=== PATIENT | female | born 1980 | race Caucasian/White ===

== ENCOUNTER 2016-09-25 15:43 | Emergency (ER) | payer OTHER ==
[~2016-09-25] VITALS: Wt 83.5 kg
[~2016-09-25 15:43] MED LIST: ADV25050 INH; ALBU18HF INHALATION; ALBU2.5V3 NEB; ALBU8.5H3 INH; ALBU8.5H5 IH; AZIT250T94 PO; BUDE6HFA INHALATION; FAMO-18 PO; HYDR-3498 PO; HYDR-906 PO; LEVO500T72 PO; MONT10TA21 PO; NORG1TAB30 PO; PRED20TA PO; RTPRO NEB; SYMB80120 INHALATION
[2016-09-25] MEDS ORDERED: ACETAMINOPHEN 325 MG TAB PO STA (17:26)
[2016-09-25] MEDS ORDERED: METOCLOPRAMIDE 10 MG INJ IV ONE (17:30)
[2016-09-25 17:52] LABS: BASOPHIL # 0.1 10^3/ul (0.0-0.1); BASOPHILS % 0.6 % (0.0-2.0); EOSINOPHILS # 0.4 10^3/ul (0.0-0.5); EOSINOPHILS % 3.3 % (0.0-7.0); HEMOGLOBIN 12.7 g/dl (12.0-16.0); LYMPHOCYTES % 19.1 % (15.0-51.0); MEAN CORPUSCULAR HEMOGLOBIN 30.6 pg (29.0-33.0); MEAN CORPUSCULAR HGB CONC 34.4 g/dl (32.0-37.0); MEAN CORPUSCULAR VOLUME 88.8 fl (82.0-101.0); MEAN PLATELET VOLUME 8.9 fl (7.4-10.4); MONOCYTE # 0.5 10^3/ul (0.3-0.9); MONOCYTES % 4.4 % (0.0-11.0); NEUTROPHIL # 7.8 10^3/ul (1.6-7.5); NEUTROPHILS % 72.6 % (39.0-77.0); PLATELET COUNT 282 10^3/UL (140-440); RED BLOOD COUNT 4.17 10^6/ul (4.20-5.40); RED CELL DISTRIBUTION WIDTH 14.9 % (11.5-14.5); UNCORRECTED WBC 10.7 10^3/ul (4.8-10.8); WHITE BLOOD COUNT 10.7 10^3/ul (4.8-10.8)
[2016-09-25 17:55] LABS: CONDITION 1; LH ANALYZER COMMENTS 1
[2016-09-25 17:57] LABS: ADD UMIC YES; URINE BILIRUBIN (Dip) NEGATIVE (NEGATIVE); URINE BLOOD (Dip) NEGATIVE (NEGATIVE); URINE COLOR YELLOW (YELLOW); URINE GLUCOSE (Dip) NEGATIVE (NEGATIVE); URINE KETONES (Dip) TRACE (NEGATIVE); URINE LEUKOCYTE ESTERASE (Dip) NEGATIVE (NEGATIVE); URINE NITRITE (Dip) NEGATIVE (NEGATIVE); URINE TOTAL PROTEIN (Dip) NEGATIVE (NEGATIVE); URINE UROBILINOGEN (Dip) 0.2 E.U./dL (0.1-1.0)
[2016-09-25 18:04] LABS: ALBUMIN 3.5 g/dl (3.3-4.9)
[2016-09-25 18:05] LABS: POTASSIUM 3.7 mmol/L (3.5-5.1)
[2016-09-25 18:06] LABS: BACTERIA,URINE FEW; MUCUS,URINE MODERATE; SQUAMOUS EPITHELIAL CELL,UR MANY
[2016-09-25 18:07] LABS: ALBUMIN/GLOBULIN RATIO 1.09; BILIRUBIN,INDIRECT 0.2 mg/dl (0-1.1); BILIRUBIN,TOTAL 0.2 mg/dl (0.2-1.3); CREATININE 0.66 mg/dl (0.44-1.00); TOTAL PROTEIN 6.7 g/dl (6.1-8.1); URINE RBCS NONE SEEN /HPF (0)
[2016-09-25 18:08] LABS: CALCIUM 8.7 mg/dl (8.4-10.2)
--- NOTE | 2016-09-25 18:28 | RADRPT ---
PROCEDURE: US OB. CLINICAL INDICATION: Vaginal bleeding TECHNIQUE: Transabdominal views of the pelvis are available for review. COMPARISON: 08/23/2016 FINDINGS: There is a single intrauterine gestation with the crown-rump length measuring 2.0 cm, corresponding to a gestational age of 8 weeks and 4 days. The heart rate is noted at 138 bpm. The ovaries are normal in size and echogenicity. Normal Doppler flow is identified in both ovaries. The right ovary measures 3.7 x 1.9 x 3.4 cm. The left ovary measures 3.3 x 1.2 x 3.0 cm. There is no free fluid. RPTAT: AA IMPRESSION: Single live intrauterine with an estimated gestational age of 8 weeks and 4 days, based on ultrasound measurements. .Esa Cavanaugh MD, Date Time Electronically viewed and signed by .Esa Cavanaugh MD, on 09/25/2016 18:28 .S/
[2016-09-25] MEDS ORDERED: TYL500 PO (18:49)
[2016-09-25] MEDS ORDERED: PRENAT PO (18:49)
[2016-09-25] MEDS ORDERED: METO10TA96 PO (18:49)
--- NOTE | 2016-09-25 18:52 | ERD ---
ER Documentation Chief Complaint Date/Time DATE: 09/25/16 TIME: 18:51 Chief Complaint ABD PAIN, 12 WKS PG, NO VB, ALSO NAUSEA HPI This 36-year-old female presents with some generalized intermittent abdominal pain for last 2 days. She just found out 3 days ago she was . Her last menstrual period was early June. She denies any bleeding, fevers. She has nausea but no vomiting. She denies any specific right lower quadrant pain or right upper quadrant pain. She is a G2 para 1. She has not had her first OB visit yet. ROS All systems reviewed and are negative except as per history of present illness. Medications Home Meds Active Scripts Multivit/Min/Fol Ac/Iron/Pren* ( S*) 1 Tab Tab, 1 TAB PO DAILY, #100 TAB Prov:JI LANE MD 09/25/16 Acetaminophen* (Tylenol*) 500 Mg Tab, 500 MG PO Q4H Y for MILD PAIN LEVEL 1-3, # 14 TAB Prov:JI LANE MD 09/25/16 Metoclopramide Hcl* (Metoclopramide Hcl*) 10 Mg Tablet, 10 MG PO Q6H Y for NAUSEA AND OR VOMITING, #14 TAB Prov:JI LANE MD 09/25/16 Budesonide-Formoterol Fumarate* (Symbicort*) 160-4.5 Hfa.aer.ad, 2 PUFF INHALATION BID, #1 EACH Prov:GIUSEPPE MONROY DO 08/23/16 Albuterol Sulfate* (Ventolin HFA*) 18 Gm Hfa.aer.ad, 2 PUFF INHALATION Q4H, #1 INHALER Prov:GIUSEPPE MONROY DO 08/23/16 Albuterol Sulfate* (Albuterol Sulfate* Neb) 0.083%-3 Ml Neb, 2.5 MG NEB Q3H Y for WHEEZING AND SOB, #30 VIAL Prov:GIUSEPPE MONROY DO 08/23/16 Famotidine* (Pepcid*) 20 Mg Tablet, 20 MG PO BID, #30 TAB Prov:NAN RINCON PA-C 06/26/16 Hydrocodone/Acetaminophen ([place] 5-325 Tablet) 1 Each Tablet, 1 TAB PO Q6H Y for PAIN, #7 TAB Prov:NAN RINCON PA-C 06/26/16 Albuterol Sulfate* (Albuterol Sulfate* Neb) 0.083%-3 Ml Neb, 2.5 MG NEB Q3H Y for WHEEZING AND SOB, #30 VIAL Prov:LUKE NAVAS PA-C 01/21/16 Budesonide-Formoterol Fumarate* (Symbicort*) 80-4.5 Inha, 2 PUFFS INHALATION BID , #1 EACH Prov:LUKE NAVAS PA-C 01/21/16 Montelukast Sodium* (Singulair*) 10 Mg Tablet, 10 MG PO QHS, #30 TAB Prov:LUKE NAVAS PA-C 01/21/16 Albuterol Sulfate* (Ventolin HFA*) 18 Gm Hfa.aer.ad, 2 PUFF INHALATION Q4H, #1 INHALER Prov:LUKE NAVAS PA-C 01/21/16 Albuterol Sulfate* (Proair HFA*) 8.5 Gm Hfa.aer.ad, 2 PUFF INH Q4, #1 INHALER Prov:MOHINDER DYE PA-C 01/04/16 Albuterol Sulfate* (Proventil* Neb) 0.083% Neb, 2.5 MG NEB Q4 Y for SHORTNESS OF BREATH, #30 EA Prov:MOHINDER DYE PA-C 01/04/16 Prednisone* (Prednisone*) 20 Mg Tab, 40 MG PO DAILY for 4 Days, TAB Prov:MOHINDER YDE PA-C 01/04/16 Albuterol Sulfate* (Ventolin HFA*) 18 Gm Hfa.aer.ad, 2 PUFF INHALATION Q4H, #[address]HALER Prov:JI LANE MD 12/17/15 Prednisone* (Prednisone*) 20 Mg Tab, 60 MG PO DAILY for 10 Days, TAB 60 mg by mouth each day for 4 days. Then 40 mg by mouth each day for 3 days. The 20 mg by mouth each day for 3 days. Prov:JI LANE MD 12/17/15 Albuterol Sulfate* (Proventil* Neb) 0.083% Neb, 2.5 MG NEB Q4 Y for SHORTNESS OF BREATH, #30 EA Prov:JI LANE MD 12/17/15 Albuterol Sulfate* (Ventolin HFA*) 18 Gm Hfa.aer.ad, 2 PUFF INHALATION Q4H, #1 INHALER Prov:GAY RENNER. 11/11/15 Prednisone (Prednisone) 20 Mg Tablet, 20 MG PO BID, #10 TAB Prov:GAY RENNER S. 11/11/15 Azithromycin* (Zithromax*) 250 Mg Tablet, 250 MG PO .TahminaPACK DIRECTED, #6 TAB TAKE 500 MG (2 TABS) THE FIRST DAY THEN 250 MG (1 TAB) DAYS 2-5 Prov:GAY RENNER. 11/11/15 Prednisone* (Prednisone*) 20 Mg Tab, 60 MG PO DAILY for 4 Days, TAB Prov:EMERSON TOLBERT MD 10/17/15 Albuterol Sulfate* (Proair HFA*) 8.5 Gm Hfa.aer.ad, 2 PUFF INH Q4H Y for WHEEZING AND SOB, #1 INHALER Prov:EMERSON TOLBERT MD 10/17/15 Hydrocodone Bit/Acetaminophen (Anexsia 5-325 Mg Tablet) 1 Tab Tab, 2 TAB PO Q6 Y for mod pain, #30 Prov:JENNIFER REID NP 10/23/14 Levofloxacin* (Levaquin*) 500 Mg Tablet, 500 MG PO DAILY for 7 Days, TAB Prov:JENNIFER REID SLOT SERVICE SPECIALIST 10/23/14 Salmeterol Xinaf/Fluticasone* (Advair*) 1 Inh Inha, 1 INH INH BID for 30 Days Prov:JENNIFER REID NP 10/23/14 Reported Medications Albuterol Sulfate* (Albuterol Sulfate* HFA) 8.5 Gm Hfa.aer.ad, 2 PUFF IH Q6 Y for SHORTNESS OF BREATH, EA 10/18/14 Norgestimate-Ethinyl Estradiol (Ortho Tri-Cyclen) 0.035-0.18 Mg Tablet, 1 TAB PO DAILY, TAB 07/11/14 Allergies Allergies: Coded Allergies: kiwi (Verified Allergy, Intermediate, SWELLING, RASH, 09/25/16) KIWI FRUIT omeprazole (Verified Adverse Reaction, Intermediate, EMISIS, 09/25/16) PMhx/Soc History of Surgery: Yes (C/SECTION X1) Anesthesia Reaction: No Hx Neurological Disorder: No Hx Respiratory Disorders: Yes (ASTHMA) Hx Cardiac Disorders: No Hx Psychiatric Problems: No 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 Neck: Full range of motion..~ No meningismus. Resp: Clear to auscultation bilaterally Cardio: Regular rate and rhythm, no murmurs Abd: Soft, non tender, non distended. Normal bowel sounds Skin: No petechiae or rashes Back: No midline or flank tenderness Ext: No cyanosis, or edema Neur: Awake and alert Psych: Normal Mood and Affect Result Diagram: 09/25/165 09/25/16 1745 Results 24 hrs Laboratory Tests Test 09/25/16 17:45 Alanine Aminotransferase (ALT/SGPT) 20IU/L Albumin 3.5g/dl Albumin/Globulin Ratio 1.09 Alkaline Phosphatase 55IU/L Anion Gap 16 Aspartate Amino Transf (AST/SGOT) 13IU/L Basophils # 0.110^3/ul Basophils % 0.6% Blood Morphology Comment Blood Urea Nitrogen 6mg/dl Calcium Level 8.7mg/dl Carbon Dioxide Level 25mmol/L Chloride Level 104mmol/L Creatinine 0.66mg/dl Direct Bilirubin 0.00mg/dl Eosinophils # 0.410^3/ul Eosinophils % 3.3% Globulin 3.20g/dl Glucose Level 84mg/dl Hematocrit 37.0% Hemoglobin 12.7g/dl Indirect Bilirubin 0.2mg/dl Lymphocytes # 2.010^3/ul Lymphocytes % 19.1% Mean Corpuscular Hemoglobin 30.6pg Mean Corpuscular Hemoglobin Concent 34.4g/dl Mean Corpuscular Volume 88.8fl Mean Platelet Volume 8.9fl Monocytes # 0.510^3/ul Monocytes % 4.4% Neutrophils # 7.810^3/ul Neutrophils % 72.6% Nucleated Red Blood Cells # 0.010^3/ul Nucleated Red Blood Cells % 0.0/100WBC Platelet Count 04019^3/UL Potassium Level 3.7mmol/L Red Blood Count 4.1710^6/ul Red Cell Distribution Width 14.9% Sodium Level 141mmol/L Total Bilirubin 0.2mg/dl Total Protein 6.7g/dl Urine Bacteria FEW Urine Bilirubin NEGATIVE Urine Clarity CLOUDY Urine Color YELLOW Urine Glucose NEGATIVE% Urine Hemoglobin NEGATIVE Urine Ketones TRACE Urine Leukocyte Esterase NEGATIVE Urine Microscopic RBC NONE SEEN/HPF Urine Microscopic WBC 0-2/HPF Urine Mucus MODERATE Urine Nitrite NEGATIVE Urine Specific [place] 1.025 Urine Squamous Epithelial Cells MANY Urine Total Protein NEGATIVE Urine Urobilinogen 0.2 E.U./dL Urine pH 6.0 White Blood Count 10.710^3/ul Current Medications Medications (Trade) Dose Ordered Sig/Cathie Route PRN Reason Start Time Stop Time Status Last Admin Dose Admin Acetaminophen (Tylenol Tab) 650 mg ONCE STAT PO 09/25/16 17:26 09/25/16 17:28 DC 09/25/16 17:41 Metoclopramide HCl (Reglan) 10 mg ONCE ONCE IV 09/25/16 17:30 09/25/16 17:31 DC 09/25/16 17:41 Procedures/MDM Pelvic ultrasound shows intrauterine of 8 weeks 4 days without evidence of adnexal or acute complications. CBC and CMP and urine are normal. Patient is Rh+. Patient was given Reglan 10 mg IV Pepcid 20 mg IV. Patient had improvement in a benign abdomen on serial exam. Patient presents with intermittent mild abdominal pain and nausea of uncertain etiology of early . There is no evidence of ectopic . No signs or symptoms to suggest appendicitis, acute abdomen, UTI, sepsis. She will be discharged home with a short course of Reglan, Tylenol and instructions to take vitamins and follow-up with OB as scheduled. She should otherwise return for fevers, bleeding, new or worsening symptoms. Departure Diagnosis: Primary Impression: Abdominal pain Abdominal location: unspecified location Qualified Code: R10.9 - Abdominal pain, unspecified location Condition: Stable Patient Instructions: Abdominal Pain, Early Referrals: [facility] [place] [id number] [address] OFFICE FAX , [place] [address] [place] [address] [address]. DEE, [place] [address] [place] [address] [address] [facility]UNG, [facility] [address] [facility], [address] [place] [address] [address] MAIER, [facility] [address] [facility], [place] [address] [facility] [address] [place] [address] [facility] [address] - [address] DICKENS, SAMUEL [address] [address] DR GARC[place], [place] [address] [facility]. [address], [place] [address] DR ABRAHAM, [facility] [address] [place], [place] [id number] Additional Instructions: All exams normal today. Ultrasound shows intrauterine 8 week 4 day . Recheck with OB as scheduled or return for bleeding, fevers, new or worsening symptoms. JI LANE MD Sep 25, 2016 18:52
[2016-09-25 19:03] VITALS: BP 115/69; PULSE 80; RESP 18; TEMP 98.2
== END 2016-09-25 19:03 | disposition home or self-care (01) ==
LOC: FTE 15:43
DX: O26.891 Other specified pregnancy related conditions, first trimester (principal); R10.9 Unspecified abdominal pain; J45.909 Unspecified asthma, uncomplicated; Z3A.08 8 weeks gestation of pregnancy
CPT/HCPCS: 36415; 76801; 80053; 81001; 84702; 85025; 86900; 86901; 96374; J2765; Z7502; Z7610; 81003

== ENCOUNTER 2016-10-18 14:23 | Emergency (ER) | END 2016-10-18 19:41 | disposition home or self-care (01) | DX: O99.89 Other specified diseases and conditions complicating pregnancy, childbirth and the puerperium (principal); M54.2 Cervicalgia; J45.909 Unspecified asthma, uncomplicated; O99.511 Diseases of the respiratory system complicating pregnancy, first trimester; Z3A.12 12 weeks gestation of pregnancy | CPT/HCPCS: J2270; J2765; Z7610 ==

== ENCOUNTER 2017-04-20 16:03 | Outpatient (CLI) | payer OTHER ==
[~2017-04-20] VITALS: Ht 162.6 cm; Wt 92.4 kg
[~2017-04-20 16:03] MED LIST changes: +ACET1TAB40 PO; -FAMO-18 PO; +FAMO-96 PO; +METO10TA96 PO; +PRENAT PO; +TYL500 PO
[2017-04-20 16:48] VITALS: Ht 162.6 cm; Wt 92.4 kg
--- NOTE | 2017-04-20 17:31 | RADRPT ---
PROCEDURE: US OB biophysical profile. CLINICAL INDICATION: evaluation, decreased movement TECHNIQUE: Multiple sonographic images of the pelvis were obtained. The images were reviewed on a PACS workstation. COMPARISON: No prior studies are available for comparison. FINDINGS: There is a single viable intrauterine gestation. Cardiac activity is present with 131 beats per min vivian. There is a vertex presentation. The placenta is fundal. There is no evidence of placental abruption. There is a normal amount of amniotic fluid with an YASMEEN = 11.7 cm. Biophysical profile: movement 2/2 tone 2/2. breathing 2/2 YASMEEN 2/2 Total 04/25 RPTAT: AA . IMPRESSION: Normal biophysical profile. Physician Long Date Time Electronically viewed and signed by Physician Long on 04/20/2017 17:30 /
--- NOTE | 2017-04-20 18:09 | TRIAGE ---
OB Triage Datetime Report Generated by CPN: 04/20/2017 18:08 Datetime: 04/20/2017 17:45 Labor Evaluation Frequency: OCC Monitor Mode: External Quality: Moderate Pattern: Normal: <= 5 Contractions in 10 Minutes Resting Tone [place]: Relaxed Heart Rate FHR Baseline Rate: 140 Monitor Mode: External US FHR Baseline Changes: No Baseline Change Variability: Moderate 6-25 bpm Accelerations: 15X15 Decelerations: None Category: Category I Pain Assessment Pain Presence: None/Denies Pain Assessment Comments: Pt denies feeling any pain or pressure with contractions Datetime: 04/20/2017 17:12 Time of Arrival: 04/20/2017 16:00 EGA: 38.3 Arrived By: Ambulatory Arrived From: Other Unit in Hospital Chief Complaint: arrhythmia in NST clinic Movement: Present Contractions: Denies/Absent Rupture of Membranes: Denies Vaginal Bleeding: Normal Show Vaginal Discharge: Denies Recent Sexual Intercouse: Denies Abdominal Trauma: Not Applicable Patient Complaints: None Time Provider Notified: 04/20/2017 17:45 [facility] Initial Plan: NST, BPP/YASMEEN Datetime: 04/20/2017 17:10 Assessment Type: Triage Maternal Assessment Level of Consciousness: Fully Conscious DTR's/Clonus: DTRs 2+; No Clonus Headache: Denies Blurred Vision: No Respiratory Effort: Unlabored; Regular Rhythm; Equal Expansion Breath Sounds, Left: Clear and Equal Breath Sounds, Right: Clear and Equal Nausea/Vomiting: Denies RUQ Epigastric Pain: Denies Lower Extremities Edema: Bilateral Lower Extremities Degree: 1+ Upper Extremities Edema: None Degree: None Facial Edema: None Fall Risk Assessment History of Falling: (0) No Secondary Diagnosis: (0) No Ambulatory Aid: (0) Bedrest/Nurse Assist IV Therapy: (0) No Gait: (0) Normal/Bedrest/Immobile Mental Status: (0) Oriented to Own Ability Fall Score: 0 Fall Risk Score Definition: No Risk: No action required Datetime: 04/20/2017 16:31 Stage of : OB Triage
--- NOTE | 2017-04-20 18:56 | PN ---
Triage Information Date/Time Reason for visit: Abnormal NST Weeks of Gestation 38 weeks and 3 days /Para 2 para 1 Diabetes: none (None) Hypertention: none Additional information Allergic to kiwi and omeprazole currently on albuterol inhaler as well as Symbicort She has asthma Objective Blood pressure 110/64, pulse rate 88 respiration 18 temperature 98.6,,. Heart Rate: 140's ( heart tracing is normal with good variability and acceleration no T-cell) Contractions: 6-10 Minutes Apart (No active contractions) Exam Pelvic exam was not performed due to the fact that she does not have any contractions Results/Medications Imaging Results On ultrasound study the report is a single viable intrauterine gestation with cardiac activity 131 bpm in vertex presentation placenta was fundal no evidence of previa or abruption. 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
== END 2017-04-20 18:00 | disposition home or self-care (01) ==
LOC: OBT 16:03 → L-D 16:06 → OBT 18:00
PROVIDERS: ATTEND Obstetrics & Gynecology
DX: O76 Abnormality in fetal heart rate and rhythm complicating labor and delivery (principal); Z3A.38 38 weeks gestation of pregnancy
CPT/HCPCS: 76818; Z7500; G0463

== ENCOUNTER 2017-04-25 10:53 | Inpatient (IN) | payer OTHER ==
[~2017-04-25] VITALS: Ht 160 cm; Wt 91.8 kg
[~2017-04-25 10:53] MED LIST changes: -ACET1TAB40 PO; -ADV25050 INH; -ALBU2.5V3 NEB; -ALBU8.5H3 INH; -ALBU8.5H5 IH; -BUDE6HFA INHALATION; +CEFAZOLIN 1 GM INJ ONE; -FAMO-96 PO; -HYDR-3498 PO; -HYDR-906 PO; -LEVO500T72 PO; -METO10TA96 PO; -MONT10TA21 PO; -NORG1TAB30 PO; -PRED20TA PO; -RTPRO NEB; -SYMB80120 INHALATION; -TYL500 PO
[2017-04-25] MEDS ORDERED: CEFAZOLIN 2 GM/50 ML (PMX) 50 ML IV SCH (11:00)
[2017-04-25] MEDS ORDERED: OXYTOCIN 30 UNITS/LR 500 ML IV SCH (11:00)
[2017-04-25] MEDS ORDERED: CARBOPROST 250 MCG INJ IM PRN ×2 (11:00→17:30)
[2017-04-25] MEDS ORDERED: MISOPROSTOL 200 MCG TAB PR PRN ×2 (11:00→17:30)
[2017-04-25] MEDS ORDERED: METHYLERGONOVINE 0.2 MG INJ IM PRN ×2 (11:00→17:30)
[2017-04-25] MEDS ORDERED: OXYTOCIN 30 UNITS/LR 500 ML IV PRN ×2 (11:00→17:30)
[2017-04-25 11:07] VITALS: Ht 160 cm; Wt 91.8 kg
[2017-04-25] MEDS ORDERED: CEFAZOLIN 2 GM/50 ML (PMX) 50 ML IVPB ONE (11:16)
[2017-04-25] MEDS: LACTATED RINGER'S 1,000 ML IV SCH ×2 (11:33→12:03)
[2017-04-25 11:48] LABS: BASOPHILS % 0.2 % (0.0-2.0); EOSINOPHILS # 0.2 10^3/ul (0.0-0.5); EOSINOPHILS % 1.2 % (0.0-7.0); HEMATOCRIT 35.1 % (37.0-47.0); HEMOGLOBIN 12.2 g/dl (12.0-16.0); LYMPHOCYTES # 2.5 10^3/ul (0.8-2.9); LYMPHOCYTES % 20.1 % (15.0-51.0); MEAN CORPUSCULAR HEMOGLOBIN 31.5 pg (29.0-33.0); MEAN CORPUSCULAR HGB CONC 34.8 g/dl (32.0-37.0); MEAN CORPUSCULAR VOLUME 90.7 fl (82.0-101.0); MONOCYTE # 0.6 10^3/ul (0.3-0.9); MONOCYTES % 5.1 % (0.0-11.0); NEUTROPHIL # 9.1 10^3/ul (1.6-7.5); NEUTROPHILS % 72.3 % (39.0-77.0); PLATELET COUNT 291 10^3/UL (140-415); RED BLOOD COUNT 3.87 10^6/ul (4.20-5.40); RED CELL DISTRIBUTION WIDTH 14.1 % (11.5-14.5); WHITE BLOOD COUNT 12.6 10^3/ul (4.8-10.8)
[2017-04-25 12:07] LABS: INR 0.91; PARTIAL THROMBOPLASTIN TIME 29.1 Sec (25.0-35.0); PROTIME 12.2 Sec (12.2-14.2)
[2017-04-25] MEDS ORDERED: LACTATED RINGER'S 1,000 ML IV ONE (12:16)
[2017-04-25] MEDS ORDERED: CITRIC ACID/NA CITRATE 30 ML CUP PO ONE (12:30)
[2017-04-25] MEDS ORDERED: METOCLOPRAMIDE 10 MG INJ IV ONE (12:30)
[2017-04-25] MEDS ORDERED: ONDANSETRON 4 MG INJ IV PRN ×2 (12:30→13:30)
[2017-04-25] MEDS ORDERED: HYDROmorphONE 1 MG/ML SYG IV PRN (12:30)
[2017-04-25] MEDS ORDERED: NALOXONE (0.4 MG/ML) INJ IV PRN (12:30)
[2017-04-25] MEDS ORDERED: FAMOTIDINE 20 MG INJ IV ONE (12:30)
[2017-04-25] MEDS ORDERED: ZOLPIDEM 5 MG TAB PO PRN (12:30)
[2017-04-25] MEDS ORDERED: DIPHENHYDRAMINE 50 MG INJ IV PRN ×2 (12:30→13:30)
[2017-04-25] MEDS ORDERED: FENTAnyl 50 MCG/ML VIAL ONE (12:47)
[2017-04-25] MEDS ORDERED: morphine SULFATE/PF (10 MG/10 ML) INJ ONE (12:47)
[2017-04-25] MEDS ORDERED: EPHEDrine SULFATE 50 MG/5 ML SYG ONE (13:12)
[2017-04-25] MEDS ORDERED: OXYTOCIN 30 UNITS/LR 500 ML IV ONE (13:29)
[2017-04-25] MEDS ORDERED: KETOROLAC 30 MG INJ IV PRN (13:30)
[2017-04-25] MEDS ORDERED: FENTAnyl 50 MCG/ML VIAL IV PRN (13:30)
[2017-04-25] MEDS ORDERED: HYDROmorphONE (0.2 MG/ML) 10ML SYG IV PRN (13:30)
[2017-04-25] MEDS ORDERED: PROCHLORPERAZINE 10 MG INJ IV PRN (13:30)
[2017-04-25] MEDS ORDERED: MEPERIDINE 25 MG INJ IV PRN (13:30)
[2017-04-25] MEDS ORDERED: ONDANSETRON 4 MG INJ ONE (13:33)
[2017-04-25] MEDS ORDERED: PHENYLephrine (100 MCG/ML) 5ML SYG ONE (13:35)
[2017-04-25] MEDS ORDERED: ALBUTEROL 0.083% (NEB) 2.5 MG/3 ML AMP HHN PRN (14:00)
--- NOTE | 2017-04-25 14:03 | OPR ---
Date/Time of Note Date/Time of Note DATE: 04/25/17 TIME: 14:00 Operative Report Free Text/Dictation 39 weeks 1 day history of previous Preoperative Diagnosis Same as above Postoperative Diagnosis 39 weeks history of previous Operation/Procedure Performed Repeat Surgeon: KASHIF MINOR MD office clerk assistant: KARLA DOMINGO MD Anesthesia Type: spinal Estimated Blood Loss: other (600 cc) Transfusion Required: no KASHIF MINOR MD Apr 25, 2017 14:03
--- NOTE | 2017-04-25 14:06 | HP ---
Date/Time of Note Date/Time of Note DATE: 04/25/17 TIME: 14:03 OB - History Hx of Present Free Text/Dictation 39 weeks 1 day female 2 para 1 EDC May 01, 2017 admitted to [facility] with a history of previous section, this patient has been under the care of the [facility] and her was not complicated with gestational diabetes -induced hypertension'. Chief Complaint: 39 weeks history of previous Estimated Due Date: May 01, 2017 : 2 Para: 1 Care: Good Care Ultrasounds: Normal mid trimester US Obstetrical Complications: None Medical Complications: None Past Family/Social History * Past Medical, Surgical, Family and Obstetric Histories reviewed from chart. Rubella: immune RPR/VDRL: Negative GBS Status: Negative HBsAG: Negative OB Admission Exam Physical Exam HEENT: WNL Heart: Rhythm Normal Lungs: Clear, Equal Abdomen: WNL Reflexes: Normal Cervical Dilatation: None Heart Rate: 130's Accelerations: Accelerations Present Contractions on Admission: None Last 72 hours Lab Results CBC & BMP 04/25/17 11:20 KASHIF MINOR MD Apr 25, 2017 14:06
--- NOTE | 2017-04-25 14:12 | OPR ---
Operative Report Planned Procedure Free Text/Dictation 39 weeks 1 day history of previous admitted for repeat section declined trial of labor post Procedure date Apr 25, 2017 Procedure(s) Repeat section Pre-procedure diagnosis 39 weeks history of previous section Anesthesia Type: spinal Procedure Description Under satisfactory [spine] anesthesia, the patient was prepped and draped and placed in a supine position, tilted to the left. Pfannenstiel incision was made , carried through the subcutaneous tissue. Bleeders brought under control with electrocautery. Fascia incised to the length of the incision. Rectus muscles from the fascia, divided midline. Peritoneum exposed, entered through a transverse incision. Exploration of abdomen revealed gravid uterus normal- appearing tubes and ovary. Bladder flap was developed. Transverse incision was made in the lower segment of the uterus. Amniotic sac ruptured. [] Clear amniotic fluid noted live baby girl was delivered from unengaged vertex. [] Nasal oropharyngeal suction was performed. The baby was handed to the team for immediate attention. placenta was delivered manually intact. Uterine cavity was cleaned with wet sponge and drainage established. Uterus closed in 2 layers using [Monocryl number] in continuous fashion. Peritoneal cavity irrigated with warm saline. Sponge, needle and instrument count reported to be correct. Abdominal peritoneum closed with 0 chromic cat [] continuously. Rectus muscle approximated with 2-0 chromic cat []. Fascia closed with [#1 PDS], subcutaneous tissue approximated and repaired with several interrupted 2-0 chromic catgut skin closed with debbie. Estimated blood loss 600 []mL. Urine bag contained [200]mL of clear urine patient tolerated procedure well transferred to recovery room in good condition. Post-Procedure Findings: Live Baby girl 8 and 9 Complications: None Pt Condition post procedure: stable Physician Certification I, the undersigned physician, hereby certify that I have discussed the procedure described in this consent form with this patient (or the patient's legal outbound call center representative), including: * The risk and benefits of the procedure; * Any adverse reactions that may reasonably be expected to occur; * Any alternative efficacious methods of treatment which may be medically viable ; * The potential problems that may occur during recuperation; * Potential for blood transfusion and associated risks/benefits; and * Any research or economic interest I may have regarding this treatment. I further certify that the patient/legally responsible person was encouraged to ask question and that all questions were answered. KASHIF MINOR MD Apr 25, 2017 14:12
[2017-04-25] MEDS: HYDROmorphONE 1 MG/ML SYG IV PRN ×2 (16:22→20:20)
[2017-04-25 16:55] VITALS: BP 115/64; PULSE 70; RESP 20
[2017-04-25] MEDS ORDERED: CEFAZOLIN 1 GM/50 ML (PMX) 50 ML IVPB SCH (17:30)
[2017-04-25] MEDS ORDERED: HYDROCODONE/APAP (5/325) TAB PO PRN ×2 (17:30)
[2017-04-25] MEDS ORDERED: OXYCODONE/ACETAMINOPHEN (5/325) TAB PO PRN (17:30)
[2017-04-25] MEDS ORDERED: LANOLIN 7 GM TUBE TOP PRN (17:30)
[2017-04-25] MEDS: ALBUTEROL 0.083% (NEB) 2.5 MG/3 ML AMP HHN PRN (18:18)
[2017-04-25] MEDS: OXYTOCIN 30 UNITS/LR 500 ML IV SCH (20:18)
[2017-04-25 20:20] VITALS: BP 111/70; PULSE 70; RESP 18
[2017-04-25] MEDS: SENNA/DOCUSATE NA (8.6MG/50MG) TAB PO SCH (20:56)
[2017-04-26] VITALS: BP 110/66; PULSE 68; RESP 18
[2017-04-26] MEDS: OXYTOCIN 30 UNITS/LR 500 ML IV SCH ×3 (01:07→06:13)
[2017-04-26] MEDS: KETOROLAC 30 MG INJ IV PRN ×2 (01:49→10:34)
[2017-04-26] MEDS: ALBUTEROL 0.083% (NEB) 2.5 MG/3 ML AMP HHN PRN (01:56)
[2017-04-26] MEDS: HYDROmorphONE 1 MG/ML SYG IV PRN ×2 (06:00→12:23)
[2017-04-26 08:30] VITALS: BP 105/67; RESP 18
[2017-04-26] MEDS: SENNA/DOCUSATE NA (8.6MG/50MG) TAB PO SCH ×2 (09:00→20:29)
[2017-04-26 10:27] LABS: BASOPHILS % 0.3 % (0.0-2.0); EOSINOPHILS # 0.1 10^3/ul (0.0-0.5); EOSINOPHILS % 0.9 % (0.0-7.0); HEMATOCRIT 30.1 % (37.0-47.0); HEMOGLOBIN 10.4 g/dl (12.0-16.0); LYMPHOCYTES # 1.9 10^3/ul (0.8-2.9); LYMPHOCYTES % 16.5 % (15.0-51.0); MEAN CORPUSCULAR HEMOGLOBIN 31.9 pg (29.0-33.0); MEAN CORPUSCULAR HGB CONC 34.6 g/dl (32.0-37.0); MEAN CORPUSCULAR VOLUME 92.3 fl (82.0-101.0); MEAN PLATELET VOLUME 10.8 fl (7.4-10.4); MONOCYTE # 0.7 10^3/ul (0.3-0.9); MONOCYTES % 5.6 % (0.0-11.0); NEUTROPHIL # 8.9 10^3/ul (1.6-7.5); NEUTROPHILS % 75.9 % (39.0-77.0); PLATELET COUNT 220 10^3/UL (140-415); RED BLOOD COUNT 3.26 10^6/ul (4.20-5.40); RED CELL DISTRIBUTION WIDTH 13.8 % (11.5-14.5); WHITE BLOOD COUNT 11.7 10^3/ul (4.8-10.8)
[2017-04-26] MEDS: OXYCODONE/ACETAMINOPHEN (5/325) TAB PO PRN (14:36)
[2017-04-26 16:00] VITALS: BP 102/56; PULSE 67; RESP 16
[2017-04-26] MEDS: IBUPROFEN 600 MG TAB PO SCH ×2 (17:44→23:31)
[2017-04-26 19:35] VITALS: BP 122/69; PULSE 82; RESP 20
[2017-04-27] MEDS: OXYCODONE/ACETAMINOPHEN (5/325) TAB PO PRN ×4 (01:45→20:13)
[2017-04-27 04:05] VITALS: BP 109/65; PULSE 83; RESP 18
[2017-04-27] MEDS: IBUPROFEN 600 MG TAB PO SCH ×3 (05:44→18:31)
[2017-04-27 08:19] VITALS: BP 103/56; PULSE 87; RESP 16
[2017-04-27] MEDS: SENNA/DOCUSATE NA (8.6MG/50MG) TAB PO SCH ×2 (08:21→20:12)
[2017-04-27] MEDS: ALBUTEROL 0.083% (NEB) 2.5 MG/3 ML AMP HHN PRN (09:34)
--- NOTE | 2017-04-27 12:14 | PN ---
Date/Time of Note Date/Time of Note DATE: 04/27/17 TIME: 12:12 OB Subjective Subjective Subjective April 27, 2007 Post C section day 2 Doing Well Afebrile Ambulatory Chest Clear Breasts are soft , Nipples are intact Abdomen is soft Fundus is firm Moderate amount of lochia Incision is clean ,No evidence of infection No calf tenderness No ankle edema Current Medications Medications (Trade) Dose Ordered Sig/Cathie Route PRN Reason Start Time Stop Time Status Last Admin Dose Admin Lactated Ringer's 1,000 ml @ 125 mls/hr Q8H IV 04/25/17 11:00 04/25/17 17:11 DC 04/25/17 12:03 Cefazolin Sodium/ Dextrose 50 ml @ 100 mls/hr ONCE IV 04/25/17 11:00 04/25/17 17:11 DC Oxytocin/Lactated Ringer's 500 ml @ 125 mls/hr ONCE IV 04/25/17 11:00 04/25/17 17:15 DC 04/25/17 16:24 Oxytocin/Lactated Ringer's 500 ml @ 0 mls/hr ONCE PRN IV For Hemorrhage Management 04/25/17 11:00 04/25/17 17:15 DC Methylergonovine Maleate (Methergine) 0.2 mg ONCE PRN IM VAGINAL BLEEDING 04/25/17 11:00 04/25/17 17:17 DC Carboprost Tromethamine (Hemabate) 250 mcg ONCE PRN IM VAGINAL BLEEDING 04/25/17 11:00 04/25/17 17:17 DC Misoprostol 1000 mcg 1,000 mcg ONCE PRN DC VAGINAL BLEEDING 04/25/17 11:00 04/25/17 17:17 DC Cefazolin Sodium/ Dextrose 50 ml @ ud STK-MED ONCE IVPB 04/25/17 11:16 04/25/17 11:17 DC Lactated Ringer's (Lr) 1,000 ml @ 1,000 mls/hr Q1H ONCE IV 04/25/17 12:16 04/25/17 13:15 DC Citric Acid/ Sodium Citrate (Bicitra) 30 ml PRE-OP ONCE PO 04/25/17 12:30 04/25/17 12:31 DC 04/25/17 12:28 Famotidine (Pepcid Iv) 20 mg pre-procedure ONCE IV 04/25/17 12:30 04/25/17 12:31 DC 04/25/17 12:28 Metoclopramide HCl (Reglan) 10 mg ONCE ONCE IV 04/25/17 12:30 04/25/17 12:31 DC 04/25/17 12:28 Morphine Sulfate (Duramorph) 10 mg STK-MED ONCE .ROUTE 04/25/17 12:47 04/25/17 12:48 DC Fentanyl (Sublimaze) 100 mcg STK-MED ONCE .ROUTE 04/25/17 12:47 04/25/17 12:48 DC Ephedrine Sulfate 50 mg STK-MED ONCE .ROUTE 04/25/17 13:12 04/25/17 13:13 DC Hydromorphone HCl (Dilaudid (Rec)) 0.4 mg PACU ORDER PRN IV PAIN 04/25/17 13:30 04/25/17 17:11 DC Fentanyl (Sublimaze) 25 mcg PACU ORDER PRN IV PAIN 04/25/17 13:30 04/25/17 17:11 DC Ketorolac Tromethamine (Toradol) 30 mg PACU ORDER PRN IV FOR PAIN AFTER IV NARCOTIC MED 04/25/17 13:30 04/25/17 17:11 DC 04/25/17 15:39 Ondansetron HCl (Zofran Inj) 4 mg PACU ORDER PRN IV NAUSEA AND/OR VOMITING 04/25/17 13:30 04/25/17 17:11 DC Prochlorperazine (Compazine Inj) 5 mg PACU ORDER PRN IV NAUSEA AND/OR VOMITING 04/25/17 13:30 04/25/17 17:11 DC Meperidine HCl (Demerol) 25 mg PACU ORDER PRN IV POST-OP RIGORS 04/25/17 13:30 04/25/17 17:11 DC Diphenhydramine HCl 25 mg 25 mg PACU ORDER PRN IV PRURITUS 04/25/17 13:30 04/25/17 17:11 DC Oxytocin/Lactated Ringer's 500 ml @ ud STK-MED ONCE IV 04/25/17 13:29 04/25/17 13:30 DC Ondansetron HCl (Zofran Inj) 4 mg STK-MED ONCE .ROUTE 04/25/17 13:33 04/25/17 13:34 DC Phenylephrine HCl (Eric-Synephrine Inj Syg) 500 mcg STK-MED ONCE .ROUTE 04/25/17 13:35 04/25/17 13:36 DC Albuterol (Proventil 0.083% (Neb)) 2.5 mg PACU ORDER PRN HHN WHEEZING 04/25/17 14:00 04/25/17 17:11 DC Naloxone HCl (Narcan) 0.1 mg Q2M PRN IV FOR RESP RATE 8 OR LESS 04/25/17 12:30 04/26/17 12:29 DC Ketorolac Tromethamine (Toradol) 30 mg Q6H PRN IV PAIN 04/25/17 12:30 04/26/17 12:29 DC 04/26/17 10:34 Hydromorphone HCl (Dilaudid) 0.2 mg Q3H PRN IV PAIN LEVEL 1-5 04/25/17 12:30 04/26/17 12:29 DC Hydromorphone HCl (Dilaudid) 0.4 mg Q3H PRN IV PAIN LEVEL 6-10 04/25/17 12:30 04/26/17 12:29 DC 04/26/17 12:23 Diphenhydramine HCl (Benadryl) 25 mg Q6H PRN IV ITCHING 04/25/17 12:30 04/26/17 12:29 DC Ondansetron HCl (Zofran Inj) 4 mg Q6H PRN IV NAUSEA AND/OR VOMITING 04/25/17 12:30 04/26/17 12:29 DC Zolpidem Tartrate (Ambien) 5 mg HS MAY REPEAT X 1 PRN PO INSOMNIA 04/25/17 12:30 04/26/17 12:29 DC Miscellaneous Information (* Miscellaneous Pharmacy Order) Duramorph: 0.2 mg Spi... GIVEN XX 04/25/17 12:30 04/25/17 17:11 DC Acetaminophen/ Hydrocodone Bitart ([place] (5/325)) 1 tab Q4H PRN PO PAIN LEVEL 4-6 04/25/17 17:30 Acetaminophen/ Hydrocodone Bitart ([place] (5/325)) 2 tab Q4H PRN PO PAIN LEVEL 7-10 04/25/17 17:30 04/26/17 20:29 Oxycodone/ Acetaminophen (Percocet (5/ 325)) 1 tab Q4H PRN PO PAIN LEVEL 4-6 04/25/17 17:30 Oxycodone/ Acetaminophen (Percocet (5/ 325)) 2 tab Q4H PRN PO PAIN LEVEL 7-10 04/25/17 17:30 04/27/17 08:22 Ibuprofen (Motrin) 600 mg Q6 PO 04/26/17 18:00 04/27/17 05:44 Simethicone (Mylicon) 160 mg Q8H PRN PO DISTENSION/GAS/BLOATING 04/25/17 17:30 Senna/Docusate Sodium (Senokot-S) 1 tab BID PO 04/25/17 21:00 04/27/17 08:21 Lanolin (Ant-D-Quhndn) 1 applic BEDSIDE MEDICATION PRN TOP BEDSIDE FOR KERRI TO NIPPLES 04/25/17 17:30 Diphtheria/ Tetanus/Acell Pertussis 0.5 ml 0.5 ml ONCE ONCE IM* 04/28/17 09:00 04/28/17 09:01 Oxytocin/Lactated Ringer's 500 ml @ 0 mls/hr ONCE PRN IV For Hemorrhage Management 04/25/17 17:30 Methylergonovine Maleate (Methergine) 0.2 mg ONCE PRN IM VAGINAL BLEEDING 04/25/17 17:30 Carboprost Tromethamine (Hemabate) 250 mcg ONCE PRN IM VAGINAL BLEEDING 04/25/17 17:30 Misoprostol 1000 mcg 1,000 mcg ONCE PRN DC VAGINAL BLEEDING 04/25/17 17:30 Cefazolin Sodium 50 ml @ 100 mls/hr ONCE IVPB 04/25/17 17:30 04/25/17 17:59 DC 04/25/17 20:19 Oxytocin/Lactated Ringer's 500 ml @ 125 mls/hr Q4H IV 04/25/17 17:07 04/26/17 18:26 DC 04/26/17 06:13 Albuterol (Proventil 0.083% (Neb)) 2.5 mg Q6H RESP THERAPY PRN HHN SHORTNESS OF BREATH 04/25/17 18:00 04/27/17 09:34 Cefazolin Sodium (Ancef) 2 gm STK-MED ONCE .ROUTE 04/25/17 07:00 04/26/17 16:43 DC is doing well She is nonimmune to rubella and will be vaccinated prior to discharge SAMRA LEUNG MD Apr 27, 2017 12:14
[2017-04-27 16:00] VITALS: BP 110/66; PULSE 71; RESP 16
[2017-04-27 20:13] VITALS: BP 105/55; PULSE 74; RESP 18
[2017-04-28] MEDS: IBUPROFEN 600 MG TAB PO SCH ×4 (00:07→18:05)
[2017-04-28] MEDS: OXYCODONE/ACETAMINOPHEN (5/325) TAB PO PRN ×5 (01:23→17:44)
[2017-04-28 04:15] VITALS: BP 98/57; PULSE 68; RESP 20
[2017-04-28 08:08] VITALS: BP 106/69; PULSE 64; RESP 18
[2017-04-28] MEDS: ALBUTEROL 0.083% (NEB) 2.5 MG/3 ML AMP HHN PRN (08:10)
[2017-04-28] MEDS ORDERED: DIPHTH/TET/ACEL PERTUSS (ADULT) 0.5 ML VIAL IM* ONE (09:00)
[2017-04-28] MEDS: SENNA/DOCUSATE NA (8.6MG/50MG) TAB PO SCH (09:33)
--- NOTE | 2017-04-28 10:08 | PD.PPDC ---
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
--- NOTE | 2017-04-28 10:10 | DS ---
Date/Time of Note Date/Time of Note DATE: 04/28/17 TIME: 10:09 Discharge Summary Admission/Discharge Info Admit Date/Time Apr 25, 2017 at 10:53 Discharge Date/Time April 28, 2017 at 9:50 AM Discharge Diagnosis Post section day 3 Patient Condition: Good Procedures Repeat Hx of Present Illness Term history of previous in labor Hospital Course Satisfactory recovery Home Meds Active Scripts Multivit/Min/Fol Ac/Iron/Pren* ( S*) 1 Tab Tab, 1 TAB PO DAILY, #100 TAB Prov:JI LANE MD 09/25/16 Albuterol Sulfate* (Ventolin HFA*) 18 Gm Hfa.aer.ad, 2 PUFF INHALATION Q4H, #1 INHALER Prov:GAY RENNER 11/11/15 Azithromycin* (Zithromax*) 250 Mg Tablet, 250 MG PO .ZPACK DIRECTED, #6 TAB TAKE 500 MG (2 TABS) THE FIRST DAY THEN 250 MG (1 TAB) DAYS 2-5 Prov:GAY RENNER 11/11/15 Primary Care Provider [facility] Time spent on discharge: < 30 minutes KASHIF MINOR MD Apr 28, 2017 10:10
[2017-04-28] MEDS ORDERED: OXYTOCIN 30 UNITS/LR 500 ML IV SCH (12:00)
[2017-04-28 16:01] VITALS: BP 113/76; PULSE 71; RESP 18
== END 2017-04-28 18:58 | disposition home or self-care (01) | DRG 766 ==
LOC: L-D 10:53 → PP1 16:50
PROVIDERS: ADMIT Obstetrics & Gynecology; ATTEND Obstetrics & Gynecology
PROC: 3E033VJ Introduction of Other Hormone into Peripheral Vein, Percutaneous Approach (ICD-10-PCS; 2017-04-25)
PROC: 10D00Z1 Extraction of Products of Conception, Low, Open Approach (ICD-10-PCS; principal; 2017-04-25 12:30)
DX: O34.211 Maternal care for low transverse scar from previous cesarean delivery (principal); J45.909 Unspecified asthma, uncomplicated; Z3A.39 39 weeks gestation of pregnancy; Z37.0 Single live birth
CPT/HCPCS: 85025; 85610; 85730; 86592; 86850; 86900; 86901; 87340; 90715; 94640; 94664; 94760; 99464; J0690; J1170; J1885; J2274; J2370; J2405; J2590; J2765; J3010; J7120

== ENCOUNTER 2018-01-04 21:28 | Emergency (ER) | END 2018-01-05 03:22 | disposition home or self-care (01) ==

== ENCOUNTER 2018-01-18 22:29 | Emergency (ER) | END 2018-01-19 00:59 | disposition home or self-care (01) ==

== ENCOUNTER 2018-12-30 13:38 | Emergency (ER) | payer OTHER ==
[~2018-12-30] VITALS: Ht 162.6 cm; Wt 90.9 kg
[~2018-12-30 13:38] MED LIST changes: +ALBU8.5H8 INH; +AZIT250T PO; -AZIT250T94 PO; -CEFAZOLIN 1 GM INJ ONE; +CETI10CA PO; +GUAI120S26 PO; +IBUP-1542 PO; +PRED20TA PO; +SYMB80120 INHALATION
[2018-12-30 13:57] VITALS: Ht 162.6 cm; Wt 90.9 kg
[2018-12-30] MEDS ORDERED: IPRATROPIUM (NEB) 0.5 MG/2.5 ML AMP NEB STA (14:26)
[2018-12-30] MEDS ORDERED: SOD CHLORIDE 0.9% 1,000 ML IV STA (14:26)
[2018-12-30] MEDS ORDERED: METHYLPREDNISOLONE 125 MG INJ IV STA (14:26)
[2018-12-30] MEDS ORDERED: ALBUTEROL 0.5% (NEB) 2.5 MG/0.5 ML AMP NEB STA (14:26)
[2018-12-30] MEDS ORDERED: MAGNESIUM SULFATE 2 GM/50 ML 50 ML IVPB STA (15:38)
[2018-12-30] MEDS ORDERED: ALBUTEROL 0.083% (NEB) 2.5 MG/3 ML AMP HHN STA (16:35)
[2018-12-30] MEDS ORDERED: AZIT250T PO (17:51)
[2018-12-30] MEDS ORDERED: ALBU2.5V3 NEB (17:51)
[2018-12-30] MEDS ORDERED: PRED20TA PO (17:51)
--- NOTE | 2018-12-30 17:54 | ERD ---
ER Documentation Chief Complaint Chief Complaint ASTHMA ATTACK HPI 38-year-old female presents with wheezing over the last 3 days. She has nasal congestion and productive cough as well. She has a history of asthma and has a remote history of intubation and hospitalization last time 2 years ago. ROS All systems reviewed and are negative except as per history of present illness. Medications Home Meds Active Scripts Albuterol Sulfate* (Albuterol Sulfate* Neb) 0.083%-3 Ml Neb, 2.5 MG NEB Q4 PRN for SHORTNESS OF BREATH, #30 EA Prov:JI LANE MD 12/30/18 Prednisone* (Prednisone*) 20 Mg Tab, 60 MG PO DAILY for 6 Days, TAB 60 mg by mouth for 3 days then 40 mg by mouth for 3 days Prov:JI LANE MD 12/30/18 Azithromycin* (Zithromax*) 250 Mg Tablet, 250 MG PO .ZPACK DIRECTED, #6 TAB TAKE 500 MG (2 TABS) THE FIRST DAY THEN 250 MG (1 TAB) DAYS 2-5 Prov:JI LANE MD 12/30/18 Iilfpwycmyc-E-Rqzorotfjy Hb* (Guaifenesin* DM Syrup) 120 Ml Syrup, 10 ML PO Q4H PRN for COUGH, #120 ML Prov:FELICE MUÑOZ NP 01/19/18 Budesonide-Formoterol Fumarate* (Symbicort*) 80-4.5 Inha, 2 PUFFS INHALATION BID, #1 EACH Prov:FELICE MUÑOZ NP 01/19/18 Prednisone* (Prednisone*) 20 Mg Tab, 60 MG PO DAILY for 5 Days, TAB Prov:FELICE MUÑOZ NP 01/19/18 Ibuprofen* (Motrin*) 600 Mg Tab, 600 MG PO Q6H PRN for PAIN AND OR ELEVATED TEMP, #30 TAB Prov:FELICE MUÑOZ NP 01/19/18 Cetirizine Hcl* (Zyrtec*) 10 Mg Capsule, 10 MG PO DAILY, #30 TAB.CHEW Prov:FELICE MUÑOZ NP 01/19/18 Albuterol Sulfate* (Proair HFA*) 8.5 Gm Hfa.aer.ad, 2 PUFF INH Q4H PRN for WHEEZING AND SOB, #1 INHALER Prov:FELICE MUÑOZ NP 01/19/18 Albuterol Sulfate* (Proair HFA*) 8.5 Gm Hfa.aer.ad, 2 PUFF INH Q4, #1 INHALER Prov:ESTEBAN PONCE MD 01/05/18 Prednisone* (Prednisone*) 20 Mg Tab, 60 MG PO DAILY for 5 Days, TAB Prov:ESTEBAN PONCE MD 01/05/18 Multivit/Min/Fol Ac/Iron/Pren* ( S*) 1 Tab Tab, 1 TAB PO DAILY, #100 TAB Prov:JI LANE MD 09/25/16 Albuterol Sulfate* (Ventolin HFA*) 18 Gm Hfa.aer.ad, 2 PUFF INHALATION Q4H, #1 INHALER Prov:GAY RENNER S. 11/11/15 Azithromycin* (Zithromax*) 250 Mg Tablet, 250 MG PO .TahminaPACK DIRECTED, #6 TAB TAKE 500 MG (2 TABS) THE FIRST DAY THEN 250 MG (1 TAB) DAYS 2-5 Prov:GAY RENNER SJessica 11/11/15 Allergies Allergies: Coded Allergies: kiwi (Verified Allergy, Intermediate, SWELLING, RASH, 01/18/18) KIWI FRUIT omeprazole (Verified Adverse Reaction, Intermediate, EMISIS, 01/18/18) PMhx/Soc History of Surgery: Yes (C/SECTION X1) Anesthesia Reaction: No Hx Neurological Disorder: No Hx Respiratory Disorders: Yes (ASTHMA, Bronchitiss, PNA, respiratory distress s/p intubation 2000) Hx Cardiac Disorders: No Hx Psychiatric Problems: No 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 Head: Atraumatic Eyes: Normal Conjunctiva ENT: Normal External Ears, Nose and Mouth. TMs normal. Nasal congestion. Neck: Full range of motion. No meningismus. Resp: Clear to auscultation bilaterally. Slight subcostal retractions and wheezing diffusely. No rales appreciated. Cardio: Regular rate and rhythm, no murmurs Abd: Soft, non tender, non distended. Normal bowel sounds Skin: No petechiae or rashes Back: No midline or flank tenderness Ext: No cyanosis, or edema Neur: Awake and alert Psych: Normal Mood and Affect Results 24 hrs Current Medications Medications Dose Sig/Cathie Start Time Status Last (Trade) Ordered Route PRN Stop Time Admin Dose Reason Admin Sodium 1,000 ml @ Q1H STAT 12/30/18 DC 12/30/18 Chloride 1,000 mls/hr IV 14:26 14:38 12/30/18 15:25 Albuterol 10 mg ONCE STAT 12/30/18 DC 12/30/18 (Proventil NEB 14:26 14:44 0.5% (Neb)) 12/30/18 14:27 Ipratropium 1.5 mg ONCE STAT 12/30/18 DC 12/30/18 [place] NEB 14:26 14:44 (Atrovent 12/30/18 14:27 0.02% (Neb)) 125 mg ONCE STAT 12/30/18 DC 12/30/18 Methylprednis IV 14:26 14:38 olone Sodium 12/30/18 14:27 Succinate (Solu-Medrol) Magnesium 50 ml @ 25 ONCE STAT 12/30/18 DC 12/30/18 Sulfate mls/hr IVPB 15:38 15:48 12/30/18 17:37 Albuterol 10 mg ONCE STAT 12/30/18 DC 12/30/18 (Proventil HHN 16:35 16:55 0.083% (Neb)) 12/30/18 16:36 Procedures/MDM Patient presents with signs and symptoms of an acute asthma exacerbation. IV was obtained. She was given 125 mg Solu-Medrol IV, 1 L normal saline IV, 2 g magnesium IV. She was given 2 continuous albuterol and 1 continuous Atrovent treatment. After prolonged ER course she had clear lungs without wheezing and felt much better. She denies chest pain, vomiting or abdominal pain. She will be treated empirically with Zithromax, prednisone taper, continuation of albuterol, primary care follow-up and return precautions. She is has no signs of status asthmaticus, cardiac chest pain, pneumonia, respiratory distress. The patient was stable with no new complaints during the ER course. Clinically, t here is no current evidence to suggest meningitis, sepsis, acute abdomen, pneumonia, stroke, acute coronary syndrome, pulmonary embolism, aortic dissection or any other emergent condition appearing to require further evaluation or hospitalization. Patient counseled regarding my diagnostic impression and care plan. Prior to discharge all questions answered. Pt agrees with treatment plan and understands strict return precautions. Pt is instructed to follow up with primary care provider within 24-48 hours. Precautionary instructions provided including instructions to return to the ER if not improving or for any worsening or changing symptoms or concerns. Chest X-ray 1V Interpreted by me: Soft Tissue: No acute abnormalities Bones: No acute abnormalities Mediastinum/Cardiac Silhouette/Lungs: No acute abnormalities. Impression- normal 1 view chest x-ray Departure Diagnosis: Primary Impression: Asthma with acute exacerbation Asthma severity: unspecified severity Asthma persistence: unspecified Qualified Codes: J45.901 - Unspecified asthma with (acute) exacerbation Condition: Stable Patient Instructions: Asthma, Acute (Adult) Additional Instructions: Recheck for new or worsening symptoms with primary care doctor. Continue albuterol at home. JI LANE MD Dec 30, 2018 17:54
[2018-12-30 18:08] VITALS: BP 142/95; PULSE 118; RESP 18
== END 2018-12-30 18:10 | disposition home or self-care (01) ==
LOC: FTE 13:38
DX: J45.901 Unspecified asthma with (acute) exacerbation (principal)
CPT/HCPCS: 71045; 94644; 94645; 96361; 96365; 96366; 96375; J2930; J3475; J7030; Z7502; Z7610